=== PATIENT | male | born 1995 | race Caucasian/White ===

== ENCOUNTER 2020-07-07 15:42 | Emergency (ER) | payer MEDICAID ==
[~2020-07-07] VITALS: Ht 180.3 cm; Wt 66.1 kg
[~2020-07-07 15:42] MED LIST: AZIT250T PO; IBUP-812 PO
[2020-07-07 16:09] VITALS: BP 118/63
== END 2020-07-07 17:30 | disposition home or self-care (01) ==
LOC: ER 15:43
DX: S56.911A Strain of unspecified muscles, fascia and tendons at forearm level, right arm, initial encounter (principal); Z79.2 Long term (current) use of antibiotics; Z79.899 Other long term (current) drug therapy; X50.3XXA Overexertion from repetitive movements, initial encounter; Y93.89 Activity, other specified; Y92.89 Other specified places as the place of occurrence of the external cause; Y99.8 Other external cause status
CPT/HCPCS: 73090; 99284